=== PATIENT | female | born 1940 | race Caucasian/White ===

== ENCOUNTER 2019-11-28 19:30 | Observation (INO) ==
[2019-11-28 20:42] LABS: BASO# 0.04 X1000 (0.0-0.2); BASO% 0.6 % (0.0-0.8); EOS# 0.13 X1000 (0.0-0.7); EOS% 1.9 % (0.0-10.0); HEMATOCRIT 34.8 % (37.0-47.0); IMM GRAN# 0.03 X1000 (0.0-0.04); IMM GRAN% 0.4 % (0.0-0.5); LYMPH# 2.83 X1000 (1.2-3.4); MCH 30.1 PG (27-31); MCHC 31.6 g/dL (33-37); MCV 95.1 FL (81-99); MONO# 0.54 X1000 (0.11-0.59); MPV 10.1 FL (7.4-10.4); NEUT# 3.17 X1000 (1.4-6.5); NEUT% 47.1 % (42.2-75.2); PLT 244 X1000 (130-400); RBC 3.66 XMIL (4.2-5.4); RDW 12.5 % (11.5-14.5); WBC 6.74 X1000 (4.8-10.8)
[2019-11-28 20:47] LABS: INR 1.12; PROTIME 14.6 Seconds (11.0-16.0)
[2019-11-28 20:57] LABS: CALCIUM 9.5 mg/dL (8.8-10.2); CREATININE 1.8 mg/dL (0.5-0.9); POTASSIUM 4.6 mmol/L (3.5-5.1)
[2019-11-28] MEDS ORDERED: NEXIUM PO SCH (21:00)
[2019-11-28] MEDS: HUMULIN R SUBQ SCH (22:22)
[2019-11-28] MEDS: GLUCOPHAGE PO SCH (22:23)
[2019-11-28] MEDS: AVAPRO PO SCH (22:25)
[2019-11-28] MEDS: HYDROCHLOROTHIAZIDE PO SCH (22:25)
[2019-11-28] MEDS: CRESTOR PO SCH (22:26)
[2019-11-28] MEDS: NS 1,000 ML IV SCH (23:29)
[2019-11-28] MEDS: DESYREL PO SCH (23:30)
[2019-11-28] MEDS: INVANZ 1 GM/NS 1 GM/50 ML IVPB IV SCH (23:30)
[2019-11-29 02:18] LABS: URINE SOURCE CLEAN CATCH
[2019-11-29 02:21] LABS: BILIRUBIN URINE NEGATIVE (NEGATIVE); BLOOD URINE NEGATIVE (NEGATIVE); COLOR YELLOW; GLUCOSE URINE NEGATIVE (NEGATIVE); KETONE URINE NEGATIVE (NEGATIVE); LEUKOCYTES URINE NEGATIVE (NEGATIVE); NITRITE URINE NEGATIVE (NEGATIVE); PROTEIN URINE TRACE mg/dL (NEGATIVE); SP GRAVITY URINE 1.018; TURBIDITY URINE CLEAR (CLEAR); UR EPITHELIAL CELLS <10 /HPF (<10); URINE BACTERIA NEGATIVE /HPF; URINE RBC <10 /HPF (<10); URINE WBC <10 /HPF (<10); UROBILINOGEN URINE NORMAL (NORMAL)
--- NOTE | 2019-11-29 04:31 | HISTORY AND PHYSICAL ---
CHIEF COMPLAINT: Direct admission for recurrent UTI x3 since October of 2019. HISTORY OF PRESENT ILLNESS: She is 79-year-old white female who was treated in my office 3 times with a recurrent UTI. The last one reported ESBL Escherichia coli. She has known history of diabetes and chronic kidney disease. Basically admitted to the hospital with a PICC line and IV Invanz. The patient is basically admitted for observation. PAST MEDICAL HISTORY: Anxiety, cervical spondylosis, chronic interstitial cystitis, type 2 diabetes, metabolic syndrome, fatty liver, hiatal hernia, hyperlipidemia, hypertension, history of kidney stones, PAF, vitamin B12 deficiency. PAST SURGICAL HISTORY: Complete hysterectomy, bilateral knee surgery, left shoulder repair, right index finger traumatic amputation, bilateral cataract surgery. MEDICINES IN THE OFFICE: Avalide 300/12.5 daily, Crestor 10 daily, Eliquis 5 mg p.o. b.i.d.,Klonopin 0.5 daily, metformin 850 p.o. b.i.d., Nexium 40 mg daily, sotalol 80 mg b.i.d., trazodone 50 mg daily, Ultracet for p.r.n. pain, vitamin D 50,000 once a week. ALLERGIES: Penicillin. SOCIAL HISTORY: with 2 children, living in [place]. No smoking. No alcohol. FAMILY HISTORY: Father of heart attack in 1956. Mom of [place] in 1971. HEALTH MAINTENANCE: Flu vaccine in July of 2019,. Colonoscopy [place] [address] Chaves. Pneumococcal vaccine in 2008. Last physical examination was done on 08/17/2019. REVIEW OF SYSTEMS: HEENT: No headache. No vision problem. No earache. No sore throat. Neck: No goiter. No lymphadenopathy. No bruit. Cardiopulmonary: No chest pain, shortness of breath, PND or orthopnea. GI: Lower abdominal pain. No nausea and no altered bowel habits. No bleeding per rectum. : History of hesitancy, frequency, dysuria. No swelling of legs. No joint pain. Neurologic: No focal symptoms or weakness. PHYSICAL EXAMINATION: VITAL SIGNS: Low-grade fever in my office, blood pressure is 130/63, pulse 69, BMI 33. HEENT EXAM: Atraumatic, normocephalic. Pupils are equal and reactive to light. Tongue is in the midline. Moist mucous membranes. NECK: Supple. No lymphadenopathy. CHEST: Clear. HEART: Sounds are regular. ABDOMEN: Soft. Tender in the lower abdomen. No signs of peritonitis. EXTREMITIES: No peripheral edema or cyanosis. NEUROLOGIC: No obvious neurological deficits. LABORATORY DATA: White cell count 6.7, hematocrit 34.8, platelets 244,000, PT 14, INR 1.1. Sodium 140, potassium 4.6, BUN 28, creatinine 1.8. ASSESSMENT AND PLAN: A 79-year-old white female admitted to the hospital with basically: 1. Recurrent UTI due to ESBL Escherichia coli with underlying diabetes, chronic interstitial cystitis, kidney stone. Ultrasound of the renals in the morning. 2. Creatinine 1.8, baseline 1.4. IV fluids. 3. The patient is on Eliquis. Get the PT/INR and get a PICC line consult. 4. Outpatient IV antibiotics for 2 weeks with Invanz. 5. Type 2 diabetes on metformin. 6. Reconcile home medicines. The patient is taking Klonopin at bedtime for sleep and waiting to be admitted. Please see the culture report at [facility] and we will repeat the BMP in the morning. cc: Negra Chaves
[2019-11-29] MEDS: HUMULIN R SUBQ SCH ×4 (06:41→22:07)
[2019-11-29 07:15] LABS: CALCIUM 9.5 mg/dL (8.8-10.2); CREATININE 1.3 mg/dL (0.5-0.9); POTASSIUM 4.5 mmol/L (3.5-5.1)
[2019-11-29] MEDS ORDERED: NS 250 ML ONE (08:20)
[2019-11-29] MEDS ORDERED: BETAPACE PO SCH (09:00)
[2019-11-29] MEDS: ELIQUIS PO SCH ×2 (09:40→22:06)
[2019-11-29] MEDS: BETAPACE PO SCH ×2 (09:40→22:05)
[2019-11-29] MEDS: GLUCOPHAGE PO SCH ×2 (09:40→18:01)
[2019-11-29] MEDS: PROTONIX PO SCH (09:50)
[2019-11-29] MEDS: NS 1,000 ML IV SCH ×2 (09:50→22:12)
[2019-11-29] MEDS ORDERED: KLONOPIN PO SCH (21:00)
--- NOTE | 2019-11-29 21:42 | PROGRESS NOTE ---
DATE: 11/29/2019 SUBJECTIVE: Finally patient got admitted last night. REVIEW OF SYSTEMS: Lower abdominal pain and cramping. OBJECTIVE: Temperature is 98.4 degrees. Vitals are stable.HEENT: Within normal limits. Neck: Supple. Chest: Clear. Heart: Heart sounds are regular. Abdomen: Belly is soft, obese, nontender. No obvious deficits. INVESTIGATIONS: SMA-7: BUN 25, creatinine 1.3, glucose 68. ASSESSMENT AND PLAN: 1. Recurrent urinary tract infection with chronic interstitial cystitis. 2. Extended-Spectrum Beta Lactamase Escherichia coli. 3. Azotemia. PLAN: IV fluids. Hold the Eliquis. Waiting for PICC line. Continue on IV Invanz and reconcile home medications. Once the PICC line is placed and consider outpatient antibiotics and will follow up. LEVEL OF DOCUMENTATION: 25 minutes. cc: Jose E Ruffin MD MTDD
[2019-11-29] MEDS: CRESTOR PO SCH (22:05)
[2019-11-29] MEDS: DESYREL PO SCH (22:06)
[2019-11-29] MEDS: AVAPRO PO SCH (22:06)
[2019-11-29] MEDS: HYDROCHLOROTHIAZIDE PO SCH (22:06)
[2019-11-29] MEDS: INVANZ 1 GM/NS 1 GM/50 ML IVPB IV SCH (22:07)
[2019-11-30] MEDS: HUMULIN R SUBQ SCH (06:39)
[2019-11-30] MEDS ORDERED: PROTONIX PO SCH (07:00)
[2019-11-30 07:36] LABS: CALCIUM 9.5 mg/dL (8.8-10.2); CREATININE 1.1 mg/dL (0.5-0.9); POTASSIUM 4.5 mmol/L (3.5-5.1)
[2019-11-30 08:09] VITALS: BP 151/72
[2019-11-30] MEDS: BETAPACE PO SCH (09:38)
[2019-11-30] MEDS: ELIQUIS PO SCH (09:38)
[2019-11-30] MEDS: PROTONIX PO SCH (09:38)
[2019-11-30] MEDS: GLUCOPHAGE PO SCH (09:38)
--- NOTE | 2019-12-01 22:11 | DISCHARGE SUMMARY ---
ADMISSION DATE: 11/28/2019 DISCHARGE DATE: 11/30/2019 DISCHARGING DIAGNOSIS: Recurrent urinary tract infection due to Extended-Spectrum Beta-Lactamase (ESBL)-positive Escherichia coli due to underlying interstitial cystitis. SECONDARY DIAGNOSES: 1. Chronic anxiety. 2. Cervical spondylosis. 3. Chronic interstitial cystitis. 4. Type 2 diabetes. 5. Metabolic syndrome. 6. Fatty liver. 7. Hiatal hernia. 8. Hyperlipidemia. 9. Hypertension. 10. History of kidney stones. 11. Paroxysmal atrial fibrillation. 12. B12 deficiency. 13. Dehydration. BRIEF HISTORY: Please see the history and physical that was done on 11/28/2019. In brief, she is a 79-year-old white female who was admitted to the hospital, basically for recurrent UTI due to ESBL-positive E coli associated with azotemia. HOSPITAL COURSE: 1. Creatinine 1.8. The patient was given IV fluids, followup creatinine came back 1.3. 2. PICC line was placed on the right side. 3. Arrange IV antibiotics and outpatient setup with IV Invanz 1 g daily for 2 weeks. The rest of the hospital course was uneventful. LABS: CBC: White cell count 6.7, hematocrit 35, platelets 244,000. SMA 7, sodium 138, potassium 4.8, BUN 17, creatinine 1.1, glucose 90. Urinalysis is clear, mixed navid. DISCHARGE INSTRUCTIONS: Avapro 300/12.5 daily metformin 850 b.i.d., sotalol 80 p.o. b.i.d., Crestor 10 mg daily, Eliquis 5 mg p.o. b.i.d., Klonopin 0.5 at bedtime, Protonix 40 daily, trazodone 50 at bedtime. Continue outpatient IV Invanz 1 g daily for 2 weeks and follow up in my office in 2 weeks. cc: Jose E Ruffin MD
== END 2019-11-30 09:58 | disposition home or self-care (01) ==
LOC: 4N 21:53
PROVIDERS: ADMIT Internal Medicine; ATTEND Internal Medicine